=== PATIENT | female | born 1985 | race Caucasian/White ===

== ENCOUNTER → 2020-06-08 | Outpatient (CLI) | payer OTHER ==
[~2020-06-08] MED LIST: ADDERALL XR 1010 MG PO; CYCLOBENZAPRINE5 MG PO; IOPAMIDOL 370 MG/ML 200 ML INFUS..BTL INJ ONE; LISINOPRIL2.5 MG PO; LYRICA50 MG PO; SODIUM CHLORIDE 0.9% 50ML 50 ML ONE
--- NOTE | 2020-06-08 09:25 | Diagnostic Imaging Report ---
EXAM: CT Chest WITH contrast- Pulmonary Embolism Protocol INDICATION: Shortness of breath COMPARISON: None TECHNIQUE: Chest was scanned utilizing a multidetector helical scanner from the lung apex through the level of the diaphragm after administration of IV contrast. Thin section reconstructions were obtained with special concentration on the pulmonary arteries. Coronal and sagittal reformations were obtained. Pulmonary embolism protocol was performed. IV CONTRAST: 100 cc of Isovue 370 RADIATION DOSE: Total DLP: 494 mGy*cm Dose modulation, iterative reconstruction, and/or weight based adjustment of the mA/kV was utilized to reduce the radiation dose to as low as reasonably achievable. COMPLICATIONS: None FINDINGS: LINES/ TUBES: None. PULMONARY ARTERIES: No filling defect is identified within the pulmonary arteries to the segmental level. The subsegmental pulmonary arteries are not well opacified. Main pulmonary artery measures 2.3 cm in diameter. No right heart strain. LUNGS AND AIRWAYS: The central airways are patent. PLEURA: The pleural spaces are clear. HEART AND MEDIASTINUM: The thyroid gland is normal. No mediastinal, hilar or axillary lymphadenopathy. The heart is normal in size.. There is no pericardial effusion. UPPER ABDOMEN: Geographic hypodensity in the left liver, likely an area of focal fat. No acute findings in the upper abdomen. BONES: No acute osseous injury. No suspicious lytic or blastic lesions. Partially visualized cervical spine fusion hardware. SOFT TISSUES: Bilateral saline breast implants. IMPRESSION: No pulmonary embolism. No focal pneumonia or pulmonary edema. Signed by: Magan Booker MD on 06/08/2020 9:22 AM
== END ==
LOC: CT 07:36
PROVIDERS: ATTEND Internal Medicine
DX: R06.09 Other forms of dyspnea (principal)
CPT/HCPCS: 71260; Q9967

== ENCOUNTER → 2021-11-22 | Outpatient (CLI) | payer BC ==
[~2021-11-22] MED LIST changes: -IOPAMIDOL 370 MG/ML 200 ML INFUS..BTL INJ ONE; -SODIUM CHLORIDE 0.9% 50ML 50 ML ONE
== END ==
LOC: MRI 09:47
PROVIDERS: ATTEND Internal Medicine
DX: M50.10 Cervical disc disorder with radiculopathy, unspecified cervical region (principal)
CPT/HCPCS: 72141

== ENCOUNTER 2025-05-24 16:00 | Outpatient (RCR) | payer BC | END 2025-05-27 | LOC: PT 16:00 | PROVIDERS: ATTEND Neurological Surgery | DX: M50.90 Cervical disc disorder, unspecified, unspecified cervical region (principal) ==

== ENCOUNTER 2025-06-09 12:00 | Outpatient (RCR) | payer BC | END 2025-06-27 | LOC: PT 12:00 | PROVIDERS: ATTEND Neurological Surgery | DX: M50.10 Cervical disc disorder with radiculopathy, unspecified cervical region (principal) ==

== ENCOUNTER 2025-07-16 13:00 | Outpatient (RCR) | payer BC | END 2025-07-27 | LOC: PT 13:00 | PROVIDERS: ATTEND Neurological Surgery | DX: M75.102 Unspecified rotator cuff tear or rupture of left shoulder, not specified as traumatic (principal) ==